=== PATIENT | female | born 1985 | race Caucasian/White ===

== ENCOUNTER 2018-03-07 13:47 | Outpatient (CLI) | payer OTHER ==
[~2018-03-07 13:47] MED LIST: ALLEGRA ALLERG180 MG PO; GILTUSS TR TAB1 EACH PO; OSEL75CA PO; PRILOSEC20 MG PO; TESSALON PERLE100 MG PO; ZANTAC300 MG PO; ZITHROMAX500 MG PO
== END 2018-03-07 13:54 | disposition home or self-care (01) ==
LOC: LAB 13:47
DX: A49.2 Hemophilus influenzae infection, unspecified site (principal); J11.1 Influenza due to unidentified influenza virus with other respiratory manifestations

== ENCOUNTER 2018-11-29 11:36 | Outpatient (CLI) | payer OTHER | END 2018-11-29 15:36 | disposition home or self-care (01) | LOC: RAD 11:36 | DX: M54.89 Other dorsalgia (principal) ==